=== PATIENT | female | born 1960 | race Caucasian/White ===

== ENCOUNTER 2017-11-05 10:53 | Inpatient (IN) | payer BC ==
[~2017-11-05] VITALS: Ht 165.1 cm; Wt 93.0 kg
[2017-11-05 11:41] LABS: HEMATOCRIT 47.7 % (37.0-47.0); HEMOGLOBIN 15.8 g/dl (12.0-16.0); IMMATURE GRANULOCYTES 0.7 % (0.0-1.0); MEAN CELL VOLUME 96.8 fL CALC (80.0-100.0); MEAN CORPUSCULAR HGB CONC 33.1 g/L CALC (32.0-36.0); NEUT# 13.56 thou/uL (2.00-7.15); RED BLOOD COUNT 4.93 mill/uL (4.20-5.60); RED CELL DISTRI WIDTH 12.6 % (11.5-15.5)
[2017-11-05] MEDS ORDERED: LEVOTHYROXIN100 MCG PO (11:48)
[2017-11-05] MEDS ORDERED: ATORVASTATIN CA40 MG PO (11:48)
[2017-11-05] MEDS ORDERED: PAROXETINE10 MG PO (11:49)
[2017-11-05] MEDS ORDERED: AMBIEN5 MG PO (11:49)
[2017-11-05 11:56] LABS: ALBUMIN 4.9 g/dL (3.2-5.0); ALKALINE PHOSPHATASE 83 u/l (38-126); ANION GAP 18 (6-22 (CALC)); BUN 29 mg/dL (7-17); BUN/CREATININE RATIO 28 (12-20 (CALC)); CARBON DIOXIDE 21 mmol/l (22-30); CHLORIDE 104 mmol/l (95-108); CREATININE 1.1 mg/dL (0.5-1.0); GFR 52 ML/MIN (>=60 (CALC)); GFR FOR AFR.AMER. > 60 ML/MIN (>=60 (CALC)); LIPASE 151 u/l (23-300); POTASSIUM 4.1 mmol/l (3.5-5.1); SGOT/AST 19 u/l (14-36); SGPT/ALT 39 u/l (9-52); SODIUM 139 mmol/l (137-146); TOTAL PROTEIN 8.5 g/dL (6.3-8.2)
[2017-11-05 14:04] LABS: URINE BILIRUBIN - DIPSTICK NEGATIVE (NEGATIVE); URINE BLOOD DIPSTICK MODERATE (NEGATIVE); URINE COLOR YELLOW; URINE GLUCOSE - DIPSTICK NEGATIVE (NEGATIVE); URINE KETONE NEGATIVE (NEGATIVE); URINE PH 5.5 (4.5-8.0); URINE PROTEIN - DIPSTICK 30 mg/dL (NEG-TRACE); URINE SPECIFIC GRAVITY 1.025; URINE UROBILINOGEN - DIPSTICK 0.2 E.U./dL (0.2)
[2017-11-05 14:06] LABS: URINE CLARITY CLOUDY; URINE LEUK ESTERASE MODERATE (NEGATIVE); URINE NITRITE - DIPSTICK POSITIVE (Negative)
[2017-11-05 14:07] LABS: BARBITURATES NEGATIVE (NEGATIVE); COCAINE NEGATIVE (NEGATIVE); METHADONE NEGATIVE (NEGATIVE); OXCYCODONE NEGATIVE (NEGATIVE); TETRAHYDROCANNABIONOL NEGATIVE (NEGATIVE); TRICYLIC ANTIDEPRESSANTS NEGATIVE (NEGATIVE)
[2017-11-05 14:12] LABS: URINE CALCIUM OXALATE CRYSTALS FEW lpf; URINE SQUAMOUS EPITHELIAL CELL FEW EPI/hpf (0-FEW); URINE WBC 50-100 WBC/hpf (0-5)
[2017-11-05 16:11] VITALS: BP 125/73
[2017-11-05 19:05] VITALS: BP 100/70
[2017-11-05 23:35] VITALS: BP 118/73
[2017-11-06] VITALS (19 sets, daily range): BP systolic 87–132; BP diastolic 49–87
[2017-11-06 05:09] LABS: MEAN CELL VOLUME 99.2 fL CALC (80.0-100.0); MEAN CORPUSCULAR HGB 32.3 pG CALC (26.0-32.0); MEAN CORPUSCULAR HGB CONC 32.6 g/L CALC (32.0-36.0); RED BLOOD COUNT 3.87 mill/uL (4.20-5.60); RED CELL DISTRI WIDTH 12.8 % (11.5-15.5)
[2017-11-06 05:10] LABS: HEMATOCRIT 38.4 % (37.0-47.0); HEMOGLOBIN 12.5 g/dl (12.0-16.0)
[2017-11-06 05:17] LABS: ANION GAP 11 (6-22 (CALC)); BUN 25 mg/dL (7-17); BUN/CREATININE RATIO 27 (12-20 (CALC)); CARBON DIOXIDE 23 mmol/l (22-30); CHLORIDE 110 mmol/l (95-108); CREATININE 0.9 mg/dL (0.5-1.0); GFR > 60 ML/MIN (>=60 (CALC)); GFR FOR AFR.AMER. > 60 ML/MIN (>=60 (CALC)); POTASSIUM 4.1 mmol/l (3.5-5.1); SODIUM 141 mmol/l (137-146)
[2017-11-06 09:48] LABS: CHOLESTEROL HDL RATIO 3.3 (<4.4 (CALC)); MAGNESIUM 1.9 mg/dL (1.6-2.3)
[2017-11-06 16:36] LABS: BASO% 0 % (0-3); EOS% 1 % (0-8); HEMATOCRIT 38.2 % (37.0-47.0); HEMOGLOBIN 12.1 g/dl (12.0-16.0); IMMATURE GRANULOCYTES 0.2 % (0.0-1.0); LYMPH% 22 % (15-41); MEAN CELL VOLUME 101.1 fL CALC (80.0-100.0); MEAN CORPUSCULAR HGB CONC 31.7 g/L CALC (32.0-36.0); MONO% 6 % (2-13); NEUT# 3.95 thou/uL (2.00-7.15); NEUT% 70 % (42-76); PLATELET COUNT 146 thou/uL (130-400); RED BLOOD COUNT 3.78 mill/uL (4.20-5.60); RED CELL DISTRI WIDTH 12.8 % (11.5-15.5)
[2017-11-06 16:45] LABS: ALKALINE PHOSPHATASE 47 u/l (38-126); ANION GAP 11 (6-22 (CALC)); BUN 20 mg/dL (7-17); BUN/CREATININE RATIO 23 (12-20 (CALC)); CARBON DIOXIDE 25 mmol/l (22-30); CHLORIDE 111 mmol/l (95-108); CREATININE 0.9 mg/dL (0.5-1.0); GFR > 60 ML/MIN (>=60 (CALC)); GFR FOR AFR.AMER. > 60 ML/MIN (>=60 (CALC)); POTASSIUM 4.1 mmol/l (3.5-5.1); SGOT/AST 20 u/l (14-36); SGPT/ALT 32 u/l (9-52); SODIUM 142 mmol/l (137-146)
[2017-11-06 16:48] LABS: ALBUMIN 3.4 g/dL (3.2-5.0); TOTAL PROTEIN 6.4 g/dL (6.3-8.2)
[2017-11-06 17:10] LABS: BAND 23 % (0-8); MANUAL DIFFERENTIAL YES
[2017-11-07] VITALS (16 sets, daily range): BP systolic 98–127; BP diastolic 51–72
[2017-11-07 05:07] LABS: BASO% 0 % (0-3); EOS% 0 % (0-8); HEMATOCRIT 38.8 % (37.0-47.0); HEMOGLOBIN 12.3 g/dl (12.0-16.0); IMMATURE GRANULOCYTES 0.5 % (0.0-1.0); LYMPH% 9 % (15-41); MEAN CELL VOLUME 101.3 fL CALC (80.0-100.0); MEAN CORPUSCULAR HGB 32.1 pG CALC (26.0-32.0); MEAN CORPUSCULAR HGB CONC 31.7 g/L CALC (32.0-36.0); MONO% 5 % (2-13); NEUT# 7.42 thou/uL (2.00-7.15); PLATELET COUNT 148 thou/uL (130-400); RED BLOOD COUNT 3.83 mill/uL (4.20-5.60); RED CELL DISTRI WIDTH 12.9 % (11.5-15.5)
[2017-11-07 05:28] LABS: ANION GAP 9 (6-22 (CALC)); BUN 14 mg/dL (7-17); BUN/CREATININE RATIO 17 (12-20 (CALC)); CARBON DIOXIDE 28 mmol/l (22-30); CHLORIDE 110 mmol/l (95-108); CREATININE 0.8 mg/dL (0.5-1.0); GFR > 60 ML/MIN (>=60 (CALC)); GFR FOR AFR.AMER. > 60 ML/MIN (>=60 (CALC)); MAGNESIUM 1.9 mg/dL (1.6-2.3); SODIUM 143 mmol/l (137-146)
[2017-11-07 05:52] LABS: BAND 4 % (0-8); MANUAL DIFFERENTIAL YES; NEUT% 100 % (42-76)
[2017-11-08] VITALS (17 sets, daily range): BP systolic 95–138; BP diastolic 51–71
[2017-11-08 05:08] LABS: ANION GAP 11 (6-22 (CALC)); BUN 13 mg/dL (7-17); BUN/CREATININE RATIO 19 (12-20 (CALC)); CARBON DIOXIDE 24 mmol/l (22-30); CHLORIDE 110 mmol/l (95-108); CREATININE 0.7 mg/dL (0.5-1.0); GFR > 60 ML/MIN (>=60 (CALC)); GFR FOR AFR.AMER. > 60 ML/MIN (>=60 (CALC)); POTASSIUM 4.4 mmol/l (3.5-5.1); SODIUM 141 mmol/l (137-146)
[2017-11-08 06:16] LABS: HEMATOCRIT 33.1 % (37.0-47.0); HEMOGLOBIN 10.4 g/dl (12.0-16.0); IMMATURE GRANULOCYTES 0.3 % (0.0-1.0); MEAN CELL VOLUME 102.2 fL CALC (80.0-100.0); MEAN CORPUSCULAR HGB 32.1 pG CALC (26.0-32.0); MEAN CORPUSCULAR HGB CONC 31.4 g/L CALC (32.0-36.0); PLATELET COUNT 125 thou/uL (130-400); RED BLOOD COUNT 3.24 mill/uL (4.20-5.60); RED CELL DISTRI WIDTH 12.9 % (11.5-15.5)
[2017-11-08 06:45] LABS: BAND 3 % (0-8); MANUAL DIFFERENTIAL YES
[2017-11-09] VITALS (10 sets, daily range): BP systolic 102–123; BP diastolic 62–76
[2017-11-09 05:23] LABS: HEMATOCRIT 30.6 % (37.0-47.0); HEMOGLOBIN 9.7 g/dl (12.0-16.0); IMMATURE GRANULOCYTES 0.4 % (0.0-1.0); MEAN CORPUSCULAR HGB 32.3 pG CALC (26.0-32.0); MEAN CORPUSCULAR HGB CONC 31.7 g/L CALC (32.0-36.0); NEUT# 4.64 thou/uL (2.00-7.15); RED CELL DISTRI WIDTH 13.1 % (11.5-15.5)
[2017-11-09 05:44] LABS: BUN 13 mg/dL (7-17); BUN/CREATININE RATIO 18 (12-20 (CALC)); CHLORIDE 101 mmol/l (95-108); CREATININE 0.7 mg/dL (0.5-1.0); GFR > 60 ML/MIN (>=60 (CALC)); GFR FOR AFR.AMER. > 60 ML/MIN (>=60 (CALC)); SODIUM 138 mmol/l (137-146)
[2017-11-09 05:45] LABS: ANION GAP 9 (6-22 (CALC)); POTASSIUM 3.5 mmol/l (3.5-5.1)
[2017-11-09 05:46] LABS: CARBON DIOXIDE 32 mmol/l (22-30)
[2017-11-10 00:17] VITALS: BP 125/68
[2017-11-10 04:47] VITALS: BP 119/70
[2017-11-10 07:32] VITALS: BP 112/71
[2017-11-10 09:51] LABS: HEMATOCRIT 30.3 % (37.0-47.0); HEMOGLOBIN 9.8 g/dl (12.0-16.0); MEAN CELL VOLUME 100.3 fL CALC (80.0-100.0); MEAN CORPUSCULAR HGB 32.5 pG CALC (26.0-32.0); MEAN CORPUSCULAR HGB CONC 32.3 g/L CALC (32.0-36.0); RED BLOOD COUNT 3.02 mill/uL (4.20-5.60); RED CELL DISTRI WIDTH 12.6 % (11.5-15.5)
[2017-11-10 12:48] VITALS: BP 118/72
[2017-11-10 16:20] VITALS: BP 114/63
[2017-11-10] MEDS ORDERED: OXYCODONE/ACETA1 TA8 PO (17:14)
[2017-11-10] MEDS ORDERED: PROTONIX40 M2 PO (17:14)
[2017-11-10] MEDS ORDERED: CIPROFLOXACN500 MG PO (17:14)
[2017-11-10] MEDS ORDERED: METRONIDAZOL500 MG PO (17:14)
== END 2017-11-10 19:00 | disposition home or self-care (01) | DRG 336 ==
LOC: ED 10:53 → ED-I 14:45 → ED 14:54 → MS2 14:55 → ICU 19:01 → MS2 19:02 → ICU 11-06 16:32 → MS2 11-09 16:25
PROVIDERS: Emergency Medicine; Nurse Practitioner Family; ADMIT Internal Medicine; ATTEND Internal Medicine
PROC: 0DN80ZZ Release Small Intestine, Open Approach (ICD-10-PCS; principal; 2017-11-06)
DX: K56.50 Intestinal adhesions [bands], unspecified as to partial versus complete obstruction (principal); N17.9 Acute kidney failure, unspecified; N39.0 Urinary tract infection, site not specified; F17.210 Nicotine dependence, cigarettes, uncomplicated; E78.5 Hyperlipidemia, unspecified; E89.0 Postprocedural hypothyroidism; E86.0 Dehydration; B96.20 Unspecified Escherichia coli [E. coli] as the cause of diseases classified elsewhere; E27.8 Other specified disorders of adrenal gland; Z85.528 Personal history of other malignant neoplasm of kidney; Z90.5 Acquired absence of kidney
CPT/HCPCS: J1650; J2710; S0164

== ENCOUNTER 2018-07-06 14:31 | Inpatient (IN) | payer BC ==
[~2018-07-06] VITALS: Ht 165.1 cm; Wt 105.7 kg
[~2018-07-06 14:31] MED LIST: AMBIEN5 MG PO; ATORVASTATIN CA40 MG PO; CIPROFLOXACN500 MG PO; LEVOTHYROXIN100 MCG PO; METRONIDAZOL500 MG PO; OXYCODONE/ACETA1 TA8 PO; PAROXETINE10 MG PO; PROTONIX40 M2 PO
[2018-07-06 15:07] LABS: IMMATURE GRANULOCYTES 0.5 % (0.0-5.0); MEAN CORPUSCULAR HGB 32.9 pG CALC (26.0-32.0); MEAN CORPUSCULAR HGB CONC 33.2 g/L CALC (32.0-36.0); NEUT# 5.95 thou/uL (2.00-7.15); RED BLOOD COUNT 3.89 mill/uL (4.20-5.60); RED CELL DISTRI WIDTH 12.1 % (11.5-15.5)
[2018-07-06 15:09] LABS: HEMATOCRIT 38.5 % (37.0-47.0); HEMOGLOBIN 12.8 g/dl (12.0-16.0)
[2018-07-06 15:24] LABS: ALKALINE PHOSPHATASE 57 u/l (38-126); ANION GAP 14 (6-22 (CALC)); BILIRUBIN, TOTAL 0.6 mg/dL (0.0-1.4); BUN 14 mg/dL (7-17); BUN/CREATININE RATIO 15 (12-20 (CALC)); CARBON DIOXIDE 26 mmol/l (22-30); CHLORIDE 104 mmol/l (95-108); GFR 57 ML/MIN (>=60 (CALC)); GFR FOR AFR.AMER. > 60 ML/MIN (>=60 (CALC)); LIPASE 113 u/l (23-300); POTASSIUM 4.1 mmol/l (3.5-5.1); SGOT/AST 23 u/l (14-36); SODIUM 140 mmol/l (137-146); TOTAL PROTEIN 6.9 g/dL (6.3-8.2)
[2018-07-06] MEDS ORDERED: MULTI VIT PO (15:53)
[2018-07-06] MEDS ORDERED: ASPIRIN ADULT L81 M2 PO (15:54)
[2018-07-06 16:03] LABS: ALBUMIN 4.2 g/dL (3.2-5.0)
[2018-07-06 19:50] VITALS: BP 132/82
[2018-07-07] VITALS (12 sets, daily range): BP systolic 94–125; BP diastolic 50–61
[2018-07-07 11:52] LABS: HEMATOCRIT 35.8 % (37.0-47.0); HEMOGLOBIN 11.5 g/dl (12.0-16.0); IMMATURE GRANULOCYTES 0.6 % (0.0-5.0); MEAN CELL VOLUME 102.3 fL CALC (80.0-100.0); MEAN CORPUSCULAR HGB 32.9 pG CALC (26.0-32.0); MEAN CORPUSCULAR HGB CONC 32.1 g/L CALC (32.0-36.0); NEUT# 4.13 thou/uL (2.00-7.15); RED BLOOD COUNT 3.5 mill/uL (4.20-5.60); RED CELL DISTRI WIDTH 12.3 % (11.5-15.5)
[2018-07-07 12:05] LABS: ALBUMIN 3.6 g/dL (3.2-5.0); ALKALINE PHOSPHATASE 47 u/l (38-126); AMYLASE < 30 u/l (30-110); ANION GAP 11 (6-22 (CALC)); BILIRUBIN, TOTAL 0.8 mg/dL (0.0-1.4); BUN 14 mg/dL (7-17); BUN/CREATININE RATIO 13 (12-20 (CALC)); CARBON DIOXIDE 31 mmol/l (22-30); CHLORIDE 101 mmol/l (95-108); CREATININE 1.1 mg/dL (0.5-1.0); GFR 51 ML/MIN (>=60 (CALC)); GFR FOR AFR.AMER. > 60 ML/MIN (>=60 (CALC)); LIPASE 78 u/l (23-300); POTASSIUM 3.8 mmol/l (3.5-5.1); SGOT/AST 17 u/l (14-36); SODIUM 140 mmol/l (137-146); TOTAL PROTEIN 6.1 g/dL (6.3-8.2)
[2018-07-07 13:04] LABS: URINE BILIRUBIN - DIPSTICK NEGATIVE (NEGATIVE); URINE BLOOD DIPSTICK TRACE-LYSED (NEGATIVE); URINE COLOR YELLOW; URINE GLUCOSE - DIPSTICK NEGATIVE (NEGATIVE); URINE KETONE NEGATIVE (NEGATIVE); URINE LEUK ESTERASE NEGATIVE (NEGATIVE); URINE NITRITE - DIPSTICK NEGATIVE (Negative); URINE PH 6.5 (4.5-8.0); URINE PROTEIN - DIPSTICK NEGATIVE (NEG-TRACE); URINE SPECIFIC GRAVITY <=1.005; URINE UROBILINOGEN - DIPSTICK 0.2 E.U./dL (0.2)
[2018-07-08] VITALS (25 sets, daily range): BP systolic 88–141; BP diastolic 40–71
[2018-07-08 07:33] LABS: HEMATOCRIT 34.7 % (37.0-47.0); HEMOGLOBIN 11.2 g/dl (12.0-16.0); MEAN CELL VOLUME 104.5 fL CALC (80.0-100.0); MEAN CORPUSCULAR HGB 33.7 pG CALC (26.0-32.0); MEAN CORPUSCULAR HGB CONC 32.3 g/L CALC (32.0-36.0); RED BLOOD COUNT 3.32 mill/uL (4.20-5.60); RED CELL DISTRI WIDTH 12.5 % (11.5-15.5)
[2018-07-08 08:03] LABS: ALKALINE PHOSPHATASE 39 u/l (38-126); ANION GAP 11 (6-22 (CALC)); BILIRUBIN, TOTAL 0.9 mg/dL (0.0-1.4); BUN 10 mg/dL (7-17); BUN/CREATININE RATIO 11 (12-20 (CALC)); CARBON DIOXIDE 26 mmol/l (22-30); CHLORIDE 106 mmol/l (95-108); CREATININE 0.9 mg/dL (0.5-1.0); GFR > 60 ML/MIN (>=60 (CALC)); GFR FOR AFR.AMER. > 60 ML/MIN (>=60 (CALC)); POTASSIUM 4.2 mmol/l (3.5-5.1); SGOT/AST 20 u/l (14-36); SODIUM 140 mmol/l (137-146); TOTAL PROTEIN 5.2 g/dL (6.3-8.2)
[2018-07-09] VITALS (14 sets, daily range): BP systolic 93–159; BP diastolic 46–70
[2018-07-09 05:18] LABS: HEMATOCRIT 30.3 % (37.0-47.0); HEMOGLOBIN 9.6 g/dl (12.0-16.0); MEAN CELL VOLUME 106.3 fL CALC (80.0-100.0); MEAN CORPUSCULAR HGB 33.7 pG CALC (26.0-32.0); MEAN CORPUSCULAR HGB CONC 31.7 g/L CALC (32.0-36.0); RED BLOOD COUNT 2.85 mill/uL (4.20-5.60); RED CELL DISTRI WIDTH 12.4 % (11.5-15.5)
[2018-07-09 05:40] LABS: ALBUMIN 2.8 g/dL (3.2-5.0); ALKALINE PHOSPHATASE 47 u/l (38-126); ANION GAP 9 (6-22 (CALC)); BILIRUBIN, TOTAL 0.9 mg/dL (0.0-1.4); BUN 10 mg/dL (7-17); BUN/CREATININE RATIO 11 (12-20 (CALC)); CARBON DIOXIDE 28 mmol/l (22-30); CHLORIDE 106 mmol/l (95-108); CREATININE 0.9 mg/dL (0.5-1.0); GFR > 60 ML/MIN (>=60 (CALC)); GFR FOR AFR.AMER. > 60 ML/MIN (>=60 (CALC)); MAGNESIUM 1.9 mg/dL (1.6-2.3); POTASSIUM 3.8 mmol/l (3.5-5.1); SGOT/AST 22 u/l (14-36); SODIUM 139 mmol/l (137-146)
[2018-07-10] VITALS (11 sets, daily range): BP systolic 108–161; BP diastolic 55–80
[2018-07-10 05:10] LABS: HEMATOCRIT 27.7 % (37.0-47.0); HEMOGLOBIN 8.7 g/dl (12.0-16.0); IMMATURE GRANULOCYTES 0.6 % (0.0-5.0); MEAN CELL VOLUME 106.9 fL CALC (80.0-100.0); MEAN CORPUSCULAR HGB 33.6 pG CALC (26.0-32.0); MEAN CORPUSCULAR HGB CONC 31.4 g/L CALC (32.0-36.0); NEUT# 8.13 thou/uL (2.00-7.15); RED BLOOD COUNT 2.59 mill/uL (4.20-5.60); RED CELL DISTRI WIDTH 12.5 % (11.5-15.5)
[2018-07-10 05:28] LABS: ANION GAP 12 (6-22 (CALC)); BUN 9 mg/dL (7-17); BUN/CREATININE RATIO 11 (12-20 (CALC)); CARBON DIOXIDE 29 mmol/l (22-30); CHLORIDE 106 mmol/l (95-108); CREATININE 0.8 mg/dL (0.5-1.0); GFR > 60 ML/MIN (>=60 (CALC)); GFR FOR AFR.AMER. > 60 ML/MIN (>=60 (CALC)); POTASSIUM 3.7 mmol/l (3.5-5.1); SODIUM 142 mmol/l (137-146)
[2018-07-11 04:05] VITALS: BP 119/73
[2018-07-11 05:12] LABS: HEMATOCRIT 27.4 % (37.0-47.0); HEMOGLOBIN 8.5 g/dl (12.0-16.0); IMMATURE GRANULOCYTES 0.5 % (0.0-5.0); MEAN CORPUSCULAR HGB 33.2 pG CALC (26.0-32.0); NEUT# 6.16 thou/uL (2.00-7.15); RED BLOOD COUNT 2.56 mill/uL (4.20-5.60); RED CELL DISTRI WIDTH 12.7 % (11.5-15.5)
[2018-07-11 05:38] LABS: AMYLASE 30 u/l (30-110); ANION GAP 10 (6-22 (CALC)); BILIRUBIN, TOTAL 0.8 mg/dL (0.0-1.4); BUN 9 mg/dL (7-17); BUN/CREATININE RATIO 12 (12-20 (CALC)); CARBON DIOXIDE 32 mmol/l (22-30); CHLORIDE 106 mmol/l (95-108); CREATININE 0.8 mg/dL (0.5-1.0); GFR > 60 ML/MIN (>=60 (CALC)); GFR FOR AFR.AMER. > 60 ML/MIN (>=60 (CALC)); LIPASE 96 u/l (23-300); MAGNESIUM 2.3 mg/dL (1.6-2.3); POTASSIUM 3.4 mmol/l (3.5-5.1); SGOT/AST 24 u/l (14-36); SODIUM 144 mmol/l (137-146); TOTAL PROTEIN 5.3 g/dL (6.3-8.2)
[2018-07-11 05:42] LABS: ALKALINE PHOSPHATASE 120 u/l (38-126)
[2018-07-11 08:25] VITALS: BP 129/74
[2018-07-11 15:10] VITALS: BP 143/70
[2018-07-11 19:30] VITALS: BP 138/71
[2018-07-12 04:00] VITALS: BP 155/85
[2018-07-12 06:02] LABS: HEMATOCRIT 28.6 % (37.0-47.0); HEMOGLOBIN 9.1 g/dl (12.0-16.0); IMMATURE GRANULOCYTES 0.8 % (0.0-5.0); MEAN CELL VOLUME 104.4 fL CALC (80.0-100.0); MEAN CORPUSCULAR HGB 33.2 pG CALC (26.0-32.0); MEAN CORPUSCULAR HGB CONC 31.8 g/L CALC (32.0-36.0); NEUT# 5.23 thou/uL (2.00-7.15); RED BLOOD COUNT 2.74 mill/uL (4.20-5.60); RED CELL DISTRI WIDTH 12.5 % (11.5-15.5)
[2018-07-12 06:03] LABS: ALBUMIN 2.7 g/dL (3.2-5.0); ALKALINE PHOSPHATASE 96 u/l (38-126); ANION GAP 10 (6-22 (CALC)); BILIRUBIN, TOTAL 0.8 mg/dL (0.0-1.4); BUN 6 mg/dL (7-17); BUN/CREATININE RATIO 9 (12-20 (CALC)); CARBON DIOXIDE 29 mmol/l (22-30); CHLORIDE 104 mmol/l (95-108); CREATININE 0.7 mg/dL (0.5-1.0); GFR > 60 ML/MIN (>=60 (CALC)); GFR FOR AFR.AMER. > 60 ML/MIN (>=60 (CALC)); MAGNESIUM 2.1 mg/dL (1.6-2.3); POTASSIUM 3.1 mmol/l (3.5-5.1); SGOT/AST 24 u/l (14-36); SODIUM 140 mmol/l (137-146)
[2018-07-12 07:32] VITALS: BP 150/79
[2018-07-12 16:00] VITALS: BP 179/85
[2018-07-12 18:43] VITALS: BP 147/75
[2018-07-13 04:15] VITALS: BP 146/66
[2018-07-13 08:18] VITALS: BP 140/71
[2018-07-13] MEDS ORDERED: TRAMADOL HCL50 MG PO (14:02)
== END 2018-07-13 15:50 | disposition home or self-care (01) | DRG 337 ==
LOC: ED 14:31 → ED-I 18:06 → ED 18:22 → MS2 18:23 → ICU 07-07 17:12 → MS2 07-08 13:36
PROVIDERS: Family Medicine; Internal Medicine; ADMIT Internal Medicine Nephrology; ATTEND Internal Medicine
PROC: 0DNA0ZZ Release Jejunum, Open Approach (ICD-10-PCS; principal; 2018-07-07)
PROC: 0DN90ZZ Release Duodenum, Open Approach (ICD-10-PCS; 2018-07-07)
PROC: 0DNB0ZZ Release Ileum, Open Approach (ICD-10-PCS; 2018-07-07)
PROC: 0DNC0ZZ Release Ileocecal Valve, Open Approach (ICD-10-PCS; 2018-07-07)
PROC: 0WQF0ZZ Repair Abdominal Wall, Open Approach (ICD-10-PCS; 2018-07-07)
DX: K56.52 Intestinal adhesions [bands] with complete obstruction (principal); I95.81 Postprocedural hypotension; I10 Essential (primary) hypertension; E78.5 Hyperlipidemia, unspecified; E89.0 Postprocedural hypothyroidism; F41.1 Generalized anxiety disorder; F32.9 Major depressive disorder, single episode, unspecified; F17.210 Nicotine dependence, cigarettes, uncomplicated; Z85.528 Personal history of other malignant neoplasm of kidney; Z90.5 Acquired absence of kidney
CPT/HCPCS: J0131; J1650; J2710; S0164

== ENCOUNTER 2018-07-17 09:48 | Emergency (ER) | payer BC ==
[~2018-07-17] VITALS: Ht 165.1 cm; Wt 96.6 kg
[~2018-07-17 09:48] MED LIST changes: +ASPIRIN ADULT L81 M2 PO; +MULTI VIT PO; +TRAMADOL HCL50 MG PO
[2018-07-17 09:49] VITALS: BP 126/69
[2018-07-17 10:45] LABS: IMMATURE GRANULOCYTES 2.2 % (0.0-5.0); MEAN CELL VOLUME 103.1 fL CALC (80.0-100.0); MEAN CORPUSCULAR HGB 33.2 pG CALC (26.0-32.0); MEAN CORPUSCULAR HGB CONC 32.2 g/L CALC (32.0-36.0); NEUT# 8.66 thou/uL (2.00-7.15); RED BLOOD COUNT 3.55 mill/uL (4.20-5.60); RED CELL DISTRI WIDTH 13.6 % (11.5-15.5)
[2018-07-17 10:46] LABS: URINE BLOOD DIPSTICK NEGATIVE (NEGATIVE); URINE COLOR YELLOW; URINE GLUCOSE - DIPSTICK NEGATIVE (NEGATIVE); URINE KETONE 15 mg/dL (NEGATIVE); URINE LEUK ESTERASE NEGATIVE (NEGATIVE); URINE NITRITE - DIPSTICK NEGATIVE (Negative); URINE PH 7.5 (4.5-8.0); URINE PROTEIN - DIPSTICK 30 mg/dL (NEG-TRACE); URINE SPECIFIC GRAVITY 1.015
[2018-07-17 10:52] LABS: HEMATOCRIT 36.6 % (37.0-47.0); HEMOGLOBIN 11.8 g/dl (12.0-16.0)
[2018-07-17 10:53] LABS: URINE BILIRUBIN - DIPSTICK SMALL (NEGATIVE)
[2018-07-17 10:54] LABS: URINE EPITHELIAL CELLS FEW EPI/hpf (0-FEW); URINE MUCUS MODERATE hpf (NONE-FEW)
[2018-07-17 11:06] LABS: ALKALINE PHOSPHATASE 72 u/l (38-126); BILIRUBIN, TOTAL 0.9 mg/dL (0.0-1.4); BUN 8 mg/dL (7-17); BUN/CREATININE RATIO 7 (12-20 (CALC)); CARBON DIOXIDE 28 mmol/l (22-30); CHLORIDE 100 mmol/l (95-108); CREATININE 1.1 mg/dL (0.5-1.0); GFR 51 ML/MIN (>=60 (CALC)); GFR FOR AFR.AMER. > 60 ML/MIN (>=60 (CALC)); LIPASE 64 u/l (23-300); SGOT/AST 37 u/l (14-36); SODIUM 139 mmol/l (137-146)
[2018-07-17 11:07] LABS: ALBUMIN 3.9 g/dL (3.2-5.0); ANION GAP 15 (6-22 (CALC)); TOTAL PROTEIN 6.8 g/dL (6.3-8.2)
== END 2018-07-17 13:35 | DRG 390 ==
LOC: ED 09:48 → ED-I 12:22 → ED 13:35
PROVIDERS: Family Medicine
DX: K56.609 Unspecified intestinal obstruction, unspecified as to partial versus complete obstruction (principal); F41.9 Anxiety disorder, unspecified; F17.200 Nicotine dependence, unspecified, uncomplicated
CPT/HCPCS: Q9967

== ENCOUNTER 2018-11-03 23:53 | Emergency (ER) | payer OTHER, BC ==
[~2018-11-03] VITALS: Ht 165.1 cm; Wt 95.4 kg
[2018-11-04] MEDS ORDERED: VOLTAREN - GENE75 MG PO (01:35)
[2018-11-04 01:58] VITALS: BP 133/69
== END 2018-11-04 01:58 | disposition home or self-care (01) | DRG 563 ==
LOC: ED 23:53
DX: S39.012A Strain of muscle, fascia and tendon of lower back, initial encounter (principal); S30.0XXA Contusion of lower back and pelvis, initial encounter; S63.501A Unspecified sprain of right wrist, initial encounter; F17.210 Nicotine dependence, cigarettes, uncomplicated; W01.0XXA Fall on same level from slipping, tripping and stumbling without subsequent striking against object, initial encounter; Y99.0 Civilian activity done for income or pay

== ENCOUNTER 2020-12-30 23:44 | Emergency (ER) | payer OTHER, BC ==
[~2020-12-30 23:44] MED LIST changes: +VOLTAREN - GENE75 MG PO
[2020-12-31 00:30] VITALS: BP 124/72
[2020-12-31] MEDS ORDERED: [UNRECOGNIZED DRUG - REMARK] (00:59)
== END 2020-12-31 00:30 | disposition home or self-care (01) | DRG 605 ==
LOC: ED 23:44
PROC: 0HQGXZZ Repair Left Hand Skin, External Approach (ICD-10-PCS; principal; 2020-12-30)
DX: S61.211A Laceration without foreign body of left index finger without damage to nail, initial encounter (principal); F41.9 Anxiety disorder, unspecified; F17.200 Nicotine dependence, unspecified, uncomplicated; W26.0XXA Contact with knife, initial encounter; Y93.G9 Activity, other involving cooking and grilling; Y92.89 Other specified places as the place of occurrence of the external cause; Y99.0 Civilian activity done for income or pay

== ENCOUNTER 2021-11-09 18:30 | Emergency (ER) | payer BC ==
[~2021-11-09] VITALS: Ht 162.6 cm; Wt 93.0 kg
[~2021-11-09 18:30] MED LIST changes: +[UNRECOGNIZED DRUG - REMARK]
[2021-11-09 19:08] VITALS: BP 148/71
[2021-11-09 19:16] VITALS: BP 128/75
[2021-11-09 19:31] VITALS: BP 124/71
[2021-11-09 19:46] VITALS: BP 140/80
[2021-11-09] MEDS ORDERED: KEFLEX500 MG PO (19:58)
[2021-11-09 20:01] VITALS: BP 137/75
[2021-11-09 20:39] VITALS: BP 137/75
== END 2021-11-09 20:46 | disposition home or self-care (01) | DRG 605 ==
LOC: ED 18:30
PROC: 0HQKXZZ Repair Right Lower Leg Skin, External Approach (ICD-10-PCS; principal; 2021-11-09)
DX: S81.811A Laceration without foreign body, right lower leg, initial encounter (principal); F17.200 Nicotine dependence, unspecified, uncomplicated; W25.XXXA Contact with sharp glass, initial encounter; Y93.E9 Activity, other interior property and clothing maintenance; Y92.009 Unspecified place in unspecified non-institutional (private) residence as the place of occurrence of the external cause

== ENCOUNTER 2021-11-28 16:22 | Emergency (ER) | payer BC ==
[~2021-11-28] VITALS: Ht 162.6 cm; Wt 92.9 kg
[~2021-11-28 16:22] MED LIST changes: +KEFLEX500 MG PO
[2021-11-28 16:31] VITALS: BP 138/74
[2021-11-28 16:58] VITALS: BP 138/74
== END 2021-11-28 17:09 | disposition home or self-care (01) | DRG 605 ==
LOC: ED 16:22
PROC: 0HQFXZZ Repair Right Hand Skin, External Approach (ICD-10-PCS; principal; 2021-11-28)
DX: S61.411A Laceration without foreign body of right hand, initial encounter (principal); W26.9XXA Contact with unspecified sharp object(s), initial encounter; Y93.G1 Activity, food preparation and clean up; Y92.000 Kitchen of unspecified non-institutional (private) residence as the place of occurrence of the external cause; F17.200 Nicotine dependence, unspecified, uncomplicated

== ENCOUNTER 2022-05-20 18:22 | Emergency (ER) | payer BC ==
[~2022-05-20] VITALS: Ht 162.6 cm; Wt 95.5 kg
[2022-05-20] VITALS (7 sets, daily range): BP systolic 135–170; BP diastolic 67–100
[2022-05-20] MEDS ORDERED: NAPROXEN DR375 M1 PO (20:38)
== END 2022-05-20 20:33 | disposition home or self-care (01) | DRG 563 ==
LOC: ED 18:22
DX: S92.531A Displaced fracture of distal phalanx of right lesser toe(s), initial encounter for closed fracture (principal); W22.03XA Walked into furniture, initial encounter

== ENCOUNTER 2024-06-27 09:11 | Emergency (ER) | payer BC ==
[~2024-06-27] VITALS: Ht 165.1 cm; Wt 97.7 kg
[~2024-06-27 09:11] MED LIST changes: +METHOCARBAMOL500 MG PO; +NAPROXEN DR375 M1 PO
[2024-06-27 09:28] VITALS: BP 138/55
[2024-06-27 09:31] VITALS: BP 129/57
[2024-06-27] MEDS ORDERED: BENZONATATE 200 MG/CAP PO ONE (09:40)
[2024-06-27] MEDS ORDERED: methylPREDNISolone SODIUM SUCC 125 MG/2 ML SDV IM ONE (09:40)
[2024-06-27] MEDS ORDERED: IPRATROPIUM-Albuterol 0.5MG-2.5MG/3 ML NEB ONE (09:40)
[2024-06-27 10:01] VITALS: BP 122/62
[2024-06-27 10:31] VITALS: BP 136/68
[2024-06-27] MEDS ORDERED: BENZONATATE200 MG PO (10:32)
[2024-06-27] MEDS ORDERED: PREDNISONE50 MG PO (10:32)
[2024-06-27] MEDS ORDERED: ZITHROMAX250 MG PO (10:32)
[2024-06-27] MEDS ORDERED: VENTOLIN HFA108 MCG IN (10:32)
[2024-06-27 11:03] VITALS: BP 136/68
== END 2024-06-27 11:33 | disposition home or self-care (01) | DRG 203 ==
LOC: ED 09:11
DX: J20.9 Acute bronchitis, unspecified (principal); F17.200 Nicotine dependence, unspecified, uncomplicated; Z20.822 Contact with and (suspected) exposure to COVID-19